=== PATIENT | female | born 1935 | race Caucasian/White ===

== ENCOUNTER 2016-10-31 09:02 | Emergency (ER) | payer MEDICARE, OTHER ==
[~2016-10-31 09:02] MED LIST: ALPR.25; AMOX875T20 PO; CALC600T10 PO; CRES20TA OR; FEXO180 PO; GLUCTAB6 PO; LEXA10TA PO; LISI-363 PO; LORTA5 PO; NEXI40CA PO; POTA-267 OR; PREM0.622 PO; PROB1TAB PO; TAB-TAB PO; TORS5TAB4 PO; TYLE500T PO; VITACAP9 PO
[2016-10-31 09:07] VITALS: BP 197/94; PULSE 85; RESP 22; TEMP 97.8; O2SAT 98
[2016-10-31 09:23] VITALS: PULSE 82; RESP 16; O2SAT 98
[2016-10-31] MEDS ORDERED: TETANUS/DIPHTHERIA TOXOID ADULT 0.5 ML VIAL IM ONE (10:00)
--- NOTE | 2016-10-31 10:02 | PD ---
HPI Chief Complaint: Fall Time Seen by Provider: 09:08 Travel History International Travel<30 days: No Contact w/Intl Traveler<30days: No Traveled to known affect area: No History of Present Illness HPI Patient is an 81-year-old female who presents to emergency room after she suffered a mechanical fall today. Patient reports that she was trying to take out her trash, reports that she tripped over a step going into a door and landing on her right side onto tile. Patient reports that she hit her head as well as her right arm and right knee on the hard tile. Patient denies any loss of consciousness, dizziness, headache at this time. Reports that she currently is not on any anticoagulants. Patient at this point time complaints of right hip pain. Patient denies any chest pain or shortness of breath, denies any abdominal pain. Patient with no other c/o. PFSH Past Medical History Arthritis: Yes Asthma: Yes Blood Disorders: No Anxiety: Yes Cancer: No Cardiovascular Problems: Yes High Cholesterol: Yes Diabetes: No Diminished Hearing: No Endocrine: No Gastrointestinal Disorders: Yes (GERD) GERD: Yes Genitourinary: No Hypertension: Yes Immune Disorder: No Implanted Vascular Access Dvce: Yes Musculoskeletal: Yes Neurologic: No Psychiatric: Yes Respiratory: Yes : 8 Para: 8 Past Surgical History Abdominal Surgery: Yes (SHANE, APPENDECTOMY) Appendectomy: Yes Body Medical Devices: LENS IMPLANTS Cholecystectomy: Yes Eye Surgery: Yes (CATARACT SX BOTH EYES) Gynecologic Surgery: Yes (HYSTERECTOMY) Hysterectomy: Yes Oral Surgery: Yes (TONSILLECTOMY, ESOPHAGEAL DILITATION) Other Surgery: Yes Social History Alcohol Use: Yes (OCC WINE) Tobacco Use: No (QUIT 1973) Substance Use: No Allergies-Medications (Allergen,Severity, Reaction): Coded Allergies: Sulfa (Verified Allergy, Intermediate, RASH, 10/31/16) Adhesives (Verified Adverse Reaction, Intermediate, BRUISE, 10/31/16) Morphine (Verified Adverse Reaction, Intermediate, NAUSEA, 10/31/16) Reported Meds & Prescriptions Reported Meds & Active Scripts Active Active Prescriptions or Reported Medications Unobtainable Review of Systems General / Constitutional: No: Fever Eyes: No: Visual changes HENT: No: Headaches Cardiovascular: No: Chest Pain or Discomfort Respiratory: No: Shortness of Breath Gastrointestinal: No: Abdominal Pain Genitourinary: No: Dysuria Musculoskeletal: Positive: Limited ROM, No: Pain Skin: Positive Other (skin tears), No Rash Neurologic: No: Weakness Psychiatric: No: Depression Endocrine: No: Polydipsia Hematologic/Lymphatic: No: Easy Bruising Physical Exam Narrative GENERAL: Mild distress SKIN: Focused skin assessment warm/dry. Patient with skin tears to right forearm , right lower extremity, hematoma to right eyebrow over right orbit HEAD: Normocephalic. Patient with hematoma and swelling around right eyebrow EYES: Pupils equal and round. No scleral icterus. No injection or drainage. ENT: No nasal bleeding or discharge. Mucous membranes pink and moist. NECK: Trachea midline. No JVD. CARDIOVASCULAR: Regular rate and rhythm. No murmur appreciated. RESPIRATORY: No accessory muscle use. Clear to auscultation. Breath sounds equal bilaterally. GASTROINTESTINAL: Abdomen soft, non-tender, nondistended. Hepatic and splenic margins not palpable. MUSCULOSKELETAL: No obvious deformities. No clubbing. No cyanosis. No edema. NEUROLOGICAL: Awake and alert. No obvious cranial nerve deficits. Motor grossly within normal limits. Normal speech. Pain with rom to right hip - no obvious fx PSYCHIATRIC: Appropriate mood and affect; insight and judgment normal. Data Data Last Documented VS Vital Signs Date Time Temp Pulse Resp B/P Pulse Ox O2 Delivery O2 Flow Rate FiO2 10/31/16 09:23 82 16 98 Room Air 10/31/16 09:07 97.8 197/94 Orders Chest, Single Ap (10/31/16 09:18) Ct Brain W/O Iv Contrast(Rout) (10/31/16 09:18) Ct Cerv Spine W/O Contrast (10/31/16 09:18) Ct Facial Bones W/O Iv Cont (10/31/16 09:18) Ecg Monitoring (10/31/16 09:18) Oximetry (10/31/16 09:18) Wound Care (10/31/16 09:18) Hip, Uni(Ap&Lat) W Ap Pelvis (10/31/16 ) Elbow, Complete (4 Vws) (10/31/16 ) Tetanus/Diphtheria Tox Adult (Tetanus/Di (10/31/16 10:00) Diphenhydramine Inj (Benadryl Inj) (10/31/16 10:45) MDM Medical Decision Making Medical Screen Exam Complete: Yes Emergency Medical Condition: Yes Interpretation(s) Vital Signs Date Time Temp Pulse Resp B/P Pulse Ox O2 Delivery O2 Flow Rate FiO2 10/31/16 09:23 82 16 98 Room Air 10/31/16 09:07 97.8 85 22 197/94 98 Differential Diagnosis Differential includes multiple skin abrasions, hip fracture, intracranial hemorrhage, facial bone fracture, facial hematoma Narrative Course 81-year-old female who presents to emergency room after she suffered a mechanical fall at home. Patient currently not on any anticoagulants, vital signs are stable. Patient with no syncopal episode, patient is alert and oriented 3 and remembers events of accident. Vital Signs Date Time Temp Pulse Resp B/P Pulse Ox O2 Delivery O2 Flow Rate FiO2 10/31/16 09:23 82 16 98 Room Air 10/31/16 09:07 97.8 85 22 197/94 [address] 10/31/1618 Signed Impressions: Service Date/Time: Monday, October 31, 2016 09:40 - CONCLUSION: 1. Soft tissue swelling over the right orbit. 2. No acute bony fractures. 3. Chronic sinus disease in the sphenoid sinuses. Onofre Hager MD Head CT 10/31/1618 Signed Impressions: Service Date/Time: Monday, October 31, 2016 09:40 - CONCLUSION: Evidence for previous surgery occiput otherwise negative. Tony Phillips MD FACR Hip and Pelvis X-Ray 10/31/16 0000 Signed Impressions: Service Date/Time: Monday, October 31, 2016 10:15 - CONCLUSION: No acute fracture or joint dislocation. Onofre Hager MD Elbow X-Ray 10/31/16 0000 Signed Impressions: Service Date/Time: Monday, October 31, 2016 10:04 - CONCLUSION: No acute fracture or joint dislocation. Onofre Hager MD ct's and xrays reviewed - no acute injuries. patient with multiple skin abrasions/avulsion of skin. NO acute fx. I reviewed ct reports as well as xray reports with patient and her daughter in detail. patient will follow up with her primary care doctor and will return to ER as needed. discharge instructions reviewed with patient and her family in detail. she will return to ER as needed Diagnosis Primary Impression: Facial hematoma Qualified Code: S00.83XA - Facial hematoma, initial encounter Additional Impressions: Head injury Qualified Code: S09.90XA - Head injury, initial encounter Avulsion of skin Patient Instructions: General Instructions Additional Instructions: Please follow up with your primary care doctor Return to emergency room as needed Return to emergency room if symptoms worsen or progress Apply bacitracin to wounds and keep wounds covered Scripts Unable to Obtain Active Prescriptions or Reported Meds Disposition: 01 DISCHARGE HOME Condition: Stable Arina Rueda DO Oct 31, 2016 10:02
--- NOTE | 2016-10-31 10:07 | RADRPT ---
EXAM DATE/TIME: 10/31/2016 09:40 [facility] COMPARISON: No previous studies available for comparison. INDICATIONS : Trauma. Fall. Bruising above right eye. RADIATION DOSE: 65.39 CTDIvol (mGy) MEDICAL HISTORY : Hypertension. Gastroesophageal reflux disease. SURGICAL HISTORY : Hysterectomy. Appendectomy.Cholecystectomy. ENCOUNTER: Initial ACUITY: 1 day PAIN SCALE: 2/10 LOCATION: cranial TECHNIQUE: Multiple contiguous axial images were obtained of the head. Using automated exposure control and adj ustment of the mA and/or kV according to patient size, radiation dose was kept as low as reasonably a chievable to obtain optimal diagnostic quality images. DICOM format image data is available electro nically for review and comparison. FINDINGS: There is marked central and cortical atrophy with dilatation of ventricular and sulcal spaces. There is no parenchymal hemorrhage, acute infarction or mass lesion identified. There are no extra-axial fluid collections appreciated. The posterior fossa is unremarkable with midline fourth ventricle. T he portion of the orbits and paranasal sinuses visualized are unremarkable. CONCLUSION: Evidence for previous surgery occiput otherwise negative. Tony Phillips MD FACR on October 31, 2016 at 10:03 Board Certified Radiologist. This report was verified electronically.
--- NOTE | 2016-10-31 10:13 | RADRPT ---
EXAM DATE/TIME: 10/31/2016 09:40 [facility] COMPARISON: No previous studies available for comparison. INDICATIONS : Trauma. Fall. Bruising above right eye. RADIATION DOSE: 25.54 CTDIvol (mGy) MEDICAL HISTORY : Hypertension. Gastroesophageal reflux disease. SURGICAL HISTORY : Appendectomy. Cholecystectomy.Hysterectomy. ENCOUNTER: Initial ACUITY: 1 day PAIN SCORE: 7/10 LOCATION: Right facial TECHNIQUE: Volumetric scanning of the facial bones was performed. Using automated exposure control and adjustme nt of the mA and/or kV according to patient size, radiation dose was kept as low as reasonably achiev able to obtain optimal diagnostic quality images. DICOM format image data is available electronicall y for review and comparison. FINDINGS: ORBITS: The orbital and infraorbital osseous structures are intact. The retroconal structures have a normal configuration. No radiopaque foreign bodies are seen. There is soft tissue swelling over the right o rbit. NASAL BONE: The nasal bone and maxillary spine are intact ZYGOMATIC ARCHES: Symmetric without evidence of fracture. SINUSES: The maxillary, ethmoid and frontal sinuses are intact. No air-fluid levels seen. There is chronic si nus disease in the sphenoid sinuses bilaterally. NASAL CAVITY: Nasal septal deviation to the left. SOFT TISSUES: No radiopaque foreign bodies seen. No soft-tissue swelling is seen. INTRACRANIAL: No intracranial air seen. CRIBIFORM PLATE: Grossly intact. CONCLUSION: 1. Soft tissue swelling over the right orbit. 2. No acute bony fractures. 3. Chronic sinus disease in the sphenoid sinuses. Onofre Hager MD on October 31, 2016 at 10:08 Board Certified Radiologist. This report was verified electronically.
--- NOTE | 2016-10-31 10:27 | RADRPT ---
EXAM DATE/TIME: 10/31/2016 10:04 [facility] COMPARISON: No previous studies available for comparison. INDICATIONS : Fall, right elbow pain. MEDICAL HISTORY : None. SURGICAL HISTORY : None. ENCOUNTER: Initial ACUITY: 1 day PAIN SCORE: 5/10 LOCATION: Right elbow FINDINGS: Multiple view examination of the right elbow demonstrates no soft tissue swelling, joint effusion, or fracture. The osseous structures are in normal alignment. Bony mineralization is normal. CONCLUSION: No acute fracture or joint dislocation. Onofre Hager MD on October 31, 2016 at 10:24 Board Certified Radiologist. This report was verified electronically.
--- NOTE | 2016-10-31 10:28 | RADRPT ---
EXAM DATE/TIME: 10/31/2016 10:15 [facility] COMPARISON: No previous studies available for comparison. INDICATIONS : Fall, right hip pain. MEDICAL HISTORY : None. SURGICAL HISTORY : right hip replacement ENCOUNTER: Initial ACUITY: 1 day PAIN SCORE: 5/10 LOCATION: Right hip FINDINGS: Examination of the right hip was performed with AP Pelvis. The primary and secondary trabecular ronnell divya of the femoral neck is intact. There is a right hip prosthesis which appears to be in good positi on and alignment. No joint dislocation is seen. 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 No acute fracture or joint dislocation is seen. There is good alignment of the SI joints and pubic symph ysis. CONCLUSION: No acute fracture or joint dislocation. Onofre Hager MD on October 31, 2016 at 10:24 Board Certified Radiologist. This report was verified electronically.
--- NOTE | 2016-10-31 10:35 | RADRPT ---
EXAM DATE/TIME: 10/31/2016 09:40 [facility] COMPARISON: No previous studies available for comparison. INDICATIONS : Trauma. Fall. Bruising above right eye. RADIATION DOSE: 26.19 CTDIvol (mGy) MEDICAL HISTORY : Hypertension. Gastroesophageal reflux disease. SURGICAL HISTORY : Appendectomy. Cholecystectomy.Hysterectomy. ENCOUNTER: Initial ACUITY: 1 day PAIN SCALE: 0/10 LOCATION: neck TECHNIQUE: Volumetric scanning of the cervical spine was performed. Multiplanar reconstructions in the sagittal, coronal and oblique axial planes were performed. Using automated exposure control and adjustment o f the mA and/or kV according to patient size, radiation dose was kept as low as reasonably achievable to obtain optimal diagnostic quality images. DICOM format image data is available electronically f or review and comparison. FINDINGS: Vertebral body heights are intact. Dens is intact. No acute bony fracture focal bony destruction. Dontae y subtle anterolisthesis of C5 on C6. Grade 1 anterolisthesis of T1 on T2. Sagittal alignment is othe rwise maintained. Facets are normally aligned. The bony central canal is grossly patent. Paravertebra l soft tissues demonstrate atherosclerotic calcifications in the carotid vessels bilaterally. Thyroid is unremarkable by CT. Visualized lung apices are unremarkable. There is moderate to severe multilevel degenerative spondylosis of the cervical spine most prominentl y at C4-T2 with severe disc space loss, endplate sclerosis, and osteophyte formation. The mild to mod erate neural foraminal stenoses most prominently at C4-5 on the right. There is also moderate multile akiko facet arthropathy. CONCLUSION: 1. Moderate to severe multilevel degenerative spondylosis most prominently at C4-T2 with subtle anter olisthesis of C5 on C6 and grade 1 anterolisthesis of T1 on T2. These are likely degenerative in etio logy. Flexion and extension views may be performed if there is clinical concern regarding ligamentous instability. 2. Otherwise, no acute fracture. Philip Louie MD on October 31, 2016 at 10:16 Board Certified Radiologist. This report was verified electronically.
--- NOTE | 2016-10-31 10:42 | RADRPT ---
EXAM DATE/TIME: 10/31/2016 10:02 [facility] COMPARISON: No previous studies available for comparison. INDICATIONS : Fall, chest pain. MEDICAL HISTORY : Hypertension. SURGICAL HISTORY : None. ENCOUNTER: Initial ACUITY: 1 day PAIN SCORE: 05/08 LOCATION: Bilateral chest FINDINGS: Linear chronic opacities in the left lower lung zone with slight elevation of the left hemidiaphragm. No pneumothorax or significant pleural effusion. Cardiomediastinal contours are within normal limits . Left shoulder arthroplasty. Advanced degenerative changes of the right shoulder. Bony thorax otherw ise intact. CONCLUSION: 1. Findings most consistent with left lower lobe atelectasis. Philip Louie MD on October 31, 2016 at 10:36 Board Certified Radiologist. This report was verified electronically.
[2016-10-31] MEDS ORDERED: diphenhydrAMINE HCL 50 MG/ML VIAL IV PUSH ONE (10:45)
[2016-10-31] MEDS ORDERED: diphenhydrAMINE HCL 25 MG CAP PO ONE (11:00)
[2016-10-31 11:35] VITALS: BP 132/86
== END 2016-10-31 11:46 | disposition home or self-care (01) ==
LOC: PHED 09:02
DX: S00.83XA Contusion of other part of head, initial encounter (principal); S09.90XA Unspecified injury of head, initial encounter; S51.811A Laceration without foreign body of right forearm, initial encounter; S81.811A Laceration without foreign body, right lower leg, initial encounter; I10 Essential (primary) hypertension; E78.00 Pure hypercholesterolemia, unspecified; W01.190A Fall on same level from slipping, tripping and stumbling with subsequent striking against furniture, initial encounter; Z23 Encounter for immunization; Z87.19 Personal history of other diseases of the digestive system; Z87.39 Personal history of other diseases of the musculoskeletal system and connective tissue; Z87.09 Personal history of other diseases of the respiratory system; Z86.59 Personal history of other mental and behavioral disorders; Z86.79 Personal history of other diseases of the circulatory system
CPT/HCPCS: 70450; 70486; 71010; 72125; 73080; 73502; 90471; 90714

== ENCOUNTER 2017-04-18 08:49 | Emergency (ER) | payer MEDICARE ==
[2017-04-18 08:51] VITALS: BP 181/83; PULSE 77; RESP 18; TEMP 98.1; O2SAT 97
[2017-04-18] MEDS ORDERED: VITA200C3 PO (09:14)
[2017-04-18] MEDS ORDERED: LISI10TA3 PO (09:14)
[2017-04-18] MEDS ORDERED: WELLTAB39 PO (09:14)
[2017-04-18] MEDS ORDERED: FOLI400T PO (09:14)
[2017-04-18] MEDS ORDERED: BUPR300T PO (09:14)
[2017-04-18] MEDS ORDERED: FEXO180T PO (09:14)
[2017-04-18] MEDS ORDERED: CALCTAB19 PO (09:14)
[2017-04-18] MEDS ORDERED: LACTCAP8 PO (09:14)
[2017-04-18] MEDS ORDERED: VITATAB11 PO (09:14)
[2017-04-18] MEDS ORDERED: MULT-65 PO (09:14)
[2017-04-18] MEDS ORDERED: ALPR0.25 PO (09:14)
[2017-04-18] MEDS ORDERED: GLUC500T4 PO (09:14)
[2017-04-18] MEDS ORDERED: ESOM1CAP6 PO (09:14)
[2017-04-18] MEDS ORDERED: ROSU1TAB8 PO (09:14)
--- NOTE | 2017-04-18 09:51 | RADRPT ---
EXAM DATE/TIME: 04/18/2017 09:25 [facility] COMPARISON: No previous studies available for comparison. INDICATIONS : Pain in right hip post fall. MEDICAL HISTORY : None. SURGICAL HISTORY : Hip replacement. ENCOUNTER: Initial ACUITY: 1 day PAIN SCORE: 5/10 LOCATION: Right Hip FINDINGS: A single frontal view of the pelvis demonstrates no evidence of fracture. The right hip arthroplasty is in good position. The bony pelvic ring is intact. Bony mineralization is normal. The soft tissu es are intact. CONCLUSION: Unremarkable examination of the pelvis. Right hip arthroplasty in good position Jayme Sagastume MD on April 18, 2017 at 9:48 Board Certified Radiologist. This report was verified electronically.
--- NOTE | 2017-04-18 09:52 | RADRPT ---
EXAM DATE/TIME: 04/18/2017 09:25 [facility] COMPARISON: No previous studies available for comparison. INDICATIONS : Right wrist pain post fall. MEDICAL HISTORY : None. SURGICAL HISTORY : None. ENCOUNTER: Initial ACUITY: 2 days PAIN SCORE: 8/10 LOCATION: Right Wrist FINDINGS: Three view examination of the right wrist demonstrates no soft tissue swelling, dislocation, or fract ure. The patient does have positive ulnar variance articulating with the lunate. The carpal bones are in normal alignment. The joint spaces are maintained. Bony mineralization is normal. CONCLUSION: Positive ulnar variance possible articulation with the lunate correlate for ulnar impaction syndrome. Osteoarthritis of the first carpometacarpal joint. Jayme Sagastume MD on April 18, 2017 at 9:49 Board Certified Radiologist. This report was verified electronically.
[2017-04-18] MEDS ORDERED: AUGM875T3 PO (10:07)
--- NOTE | 2017-04-18 10:10 | PD ---
HPI Chief Complaint: Fall Time Seen by Provider: 09:09 Travel History International Travel<30 days: No Contact w/Intl Traveler<30days: No Traveled to known affect area: No History of Present Illness HPI 81-year-old female expressed a mechanical fall today while changing karen litter. She also suffered a cat bite to the right ulnar distal wrist a few days prior. She has had no warmth or fever. The area is not markedly tender however today during the fall she fell onto the area that was bitten. Since then increasing ecchymosis been observed. The patient also has pain in the region of the right hip/Botox. She has been ambulatory. She did not hit her head or lose consciousness. Onset sudden. Timing constant PFSH Past Medical History Arthritis: Yes Asthma: Yes Blood Disorders: No Anxiety: Yes Cancer: No Cardiovascular Problems: Yes High Cholesterol: Yes Diabetes: No Diminished Hearing: No Endocrine: No Gastrointestinal Disorders: Yes (GERD) GERD: Yes Genitourinary: No Hypertension: Yes Immune Disorder: No Implanted Vascular Access Dvce: Yes Musculoskeletal: Yes Neurologic: No Psychiatric: Yes Respiratory: Yes ?: Not : 8 Para: 8 Past Surgical History Abdominal Surgery: Yes (SHANE, APPENDECTOMY) Appendectomy: Yes Body Medical Devices: LENS IMPLANTS Cholecystectomy: Yes Eye Surgery: Yes (CATARACT SX BOTH EYES) Gynecologic Surgery: Yes (HYSTERECTOMY) Hysterectomy: Yes Oral Surgery: Yes (TONSILLECTOMY, ESOPHAGEAL DILITATION) Other Surgery: Yes Social History Alcohol Use: Yes (OCC WINE) Tobacco Use: No (QUIT 1973) Substance Use: No Allergies-Medications (Allergen,Severity, Reaction): Coded Allergies: Sulfa (Sulfonamide Antibiotics) (Unverified Allergy, Intermediate, RASH, 04/18/17) adhesive (Unverified Adverse Reaction, Intermediate, BRUISE, 04/18/17) morphine (Unverified Adverse Reaction, Intermediate, NAUSEA, 04/18/17) Reported Meds & Prescriptions Reported Meds & Active Scripts Active Augmentin (Amoxicillin-Clavulanate) 875-125 Mg Tab 1 Tab PO BID Reported Calcium 600+D 200 (Calcium Carbonate-Vitamin D) 600-200 Mg-Unit Tab 1 Tab PO BID Alprazolam 0.25 Mg Tab 0.25 Mg PO BID PRN Wellbutrin Xl 24 HR (Bupropion HCl) 300 Mg Tab 300 Mg PO DAILY Vitamin E 200 Unit Cap 400 Units PO DAILY Rosuvastatin (Rosuvastatin Calcium) 20 Mg Tab 20 Mg PO HS Probiotic (Lactobacillus Acidophilus) 10 Billion Cell Cap 1 Cap PO HS Lisinopril 10 Mg Tab 10 Mg PO DAILY Glucosamine-Chondroitin 500-400 Mg Tab 1 Tab PO DAILY Folic Acid 0.4 Mg Tab 100 Mcg PO DAILY Fexofenadine (Fexofenadine HCl) 180 Mg Tab 180 Mg PO DAILY Nexium 24Hr (Esomeprazole Magnesium) 20 Mg Capsule.dr 40 Mg PO DAILY Multi-Vitamin Daily (Multiple Vitamin) 1 Tab Tab 1 Tab PO DAILY Bupropion HCl ER 24 HR (Bupropion HCl) 300 Mg Tab 300 Mg PO HS Vitamin B Complex (B-Complex Vitamins) 1 Tab 1 Tab PO DAILY Review of Systems Except as stated in HPI: all other systems reviewed are Neg General / Constitutional: No: Fever Physical Exam Narrative GENERAL: 81-year-old female pleasant well-nourished and well-developed SKIN: Focused skin assessment warm/dry. HEAD: Atraumatic. Normocephalic. EYES: Pupils equal and round. No scleral icterus. No injection or drainage. ENT: No nasal bleeding or discharge. Mucous membranes pink and moist. NECK: Trachea midline. No JVD. CARDIOVASCULAR: Regular rate and rhythm. No murmur appreciated. RESPIRATORY: No accessory muscle use. Clear to auscultation. Breath sounds equal bilaterally. GASTROINTESTINAL: Abdomen soft, non-tender, nondistended. Hepatic and splenic margins not palpable. MUSCULOSKELETAL: No obvious deformities. No clubbing. No cyanosis. Along the distal and volar aspect of the right forearm there is ecchymosis and erythema and 2 linear after 1 cm x 1 mm long lesions consistent with cat bite. There is no obvious cellulitic change in the area. There is minimal tenderness overlying the region of the right greater trochanter. The patient can lift each leg from the bed without difficulty. NEUROLOGICAL: Awake and alert. No obvious cranial nerve deficits. Motor grossly within normal limits. Normal speech. PSYCHIATRIC: Appropriate mood and affect; insight and judgment normal. Data Data Last Documented VS Vital Signs Date Time Temp Pulse Resp B/P (MAP) Pulse Ox O2 Delivery O2 Flow Rate FiO2 04/18/17 10:22 80 18 166/88 (114) 98 04/18/17 08:51 98.1 Vital signs reviewed Orders Orders Pelvis, Ap Only (Routine) (04/18/17 ) Wrist, Complete ([id number]) (04/18/17 ) Ed Discharge Order (04/18/17 10:11) Amoxicil-Clavulanate (Augmentin) (04/18/17 10:15) MDM Medical Decision Making Medical Screen Exam Complete: Yes Emergency Medical Condition: Yes Medical Record Reviewed: Yes Differential Diagnosis Fracture, cellulitis, abscess Narrative Course Last Impressions Wrist X-Ray 04/18/17 0000 Signed Impressions: Service Date/Time: March 09:25 - CONCLUSION: Positive ulnar variance possible articulation with the lunate correlate for ulnar impaction syndrome. Osteoarthritis of the first carpometacarpal joint. Jayme Sagastume MD Pelvis X-Ray 04/18/17 0000 Signed Impressions: Service Date/Time: March 09:25 - CONCLUSION: Unremarkable examination of the pelvis. Right hip arthroplasty in good position Jayme Sagastume MD Results of the wrist x-ray were discussed. We'll have to address the right wrist wound and place a Velcro splint over the wrist with plan for the patient follow-up with Dr. Heard of hand surgery. The case was discussed with Dr. Bunn, the patient's PCP. Augmentin for the Bite. Return precautions discussed. The patient will see Dr. Bunn next Saturday, about 5 days from today at 1 PM. 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 Med/Other Pt SpecificInfo: Prescription(s) given Scripts Amoxicillin-Clavulanate (Augmentin) 875-125 Mg Tab 1 TAB PO BID for Infection, #10 TAB 0 Refills Prov: Rudy Araujo MD 04/18/17 Disposition: 01 DISCHARGE HOME Condition: Stable Rudy Araujo MD Apr 18, 2017 10:10
[2017-04-18] MEDS ORDERED: AMOXICILLIN/CLAVULANATE K 875 MG TAB PO ONE (10:15)
[2017-04-18 10:22] VITALS: BP 166/88
== END 2017-04-18 10:38 | disposition home or self-care (01) ==
LOC: PHED 08:49
DX: S61.551A Open bite of right wrist, initial encounter (principal); L08.9 Local infection of the skin and subcutaneous tissue, unspecified; M21.931 Unspecified acquired deformity of right forearm; J45.909 Unspecified asthma, uncomplicated; E78.00 Pure hypercholesterolemia, unspecified; K21.9 Gastro-esophageal reflux disease without esophagitis; I10 Essential (primary) hypertension; M18.9 Osteoarthritis of first carpometacarpal joint, unspecified; W55.01XA Bitten by cat, initial encounter; W18.30XA Fall on same level, unspecified, initial encounter
CPT/HCPCS: 72170; 73110; 99284